=== PATIENT | female | born 1995 | race Caucasian/White ===

== ENCOUNTER 2020-03-30 22:35 | Inpatient (IN) | payer OTHER ==
[2020-03-31] MEDS ORDERED: AMPICILLIN - 2 GM in SODIUM CHLORIDE 100 ML IVPB ONE (00:30)
[2020-03-31 00:49] LABS: BASO % 1.1 % (0-2.0); EOS % 2.4 % (0-4.5); HEMOGLOBIN 13.4 GM/dL (10.7-15.3); LYMPH % 22.6 % (8-40); MCH 27.1 pg (25.7-33.7); MCHC 32.8 g/dl (32.0-36.0); MEAN CELL VOLUME 82.8 fl (80-96); MEAN PLT VOLUME 9.5 fl (7.5-11.1); NEUT % 65.9 % (42.8-82.8); PLATELET COUNT 236 K/MM3 (134-434); RBC 4.95 M/mm3 (3.60-5.2); RDW 13.9 % (11.6-15.6); WHITE BLOOD COUNT 9.3 K/mm3 (4.0-10.0)
[2020-03-31] MEDS ORDERED: AMPICILLIN SODIUM 2 GM VIAL ONE (00:51)
[2020-03-31 01:02] LABS: INR 0.93 (0.83-1.09)
[2020-03-31 01:05] LABS: ACTIVATED PTT 29.4 SECONDS (25.2-36.5)
[2020-03-31] MEDS ORDERED: OXYTOCIN 20 UNITS in 0.9% NS 20 UNIT/1,000 ML INFUS.BAG IV ONE ×2 (01:12→03:33)
[2020-03-31 01:14] LABS: BLOOD UREA NITROGEN 10.7 mg/dL (7-18); CALCIUM 8.8 mg/dL (8.5-10.1); CREATININE 0.6 mg/dL (0.55-1.3); POTASSIUM 3.9 mmol/L (3.5-5.1)
--- NOTE | 2020-03-31 01:41 | HP ---
Past Medical History - Primary Care Physician PCP:: Elsy Vargas - Admission History Source: Patient Limitations to Obtaining History: No Limitations - Past Medical History ...: 2 ...Para: 1 - Past Surgical History Past Surgical History: Yes: None Hx Myomectomy: No Hx Transabdominal Cerclage: No - Smoking History Have you smoked in the past 12 months: No Home Medications - Allergies Allergies/Adverse Reactions: Allergies Allergy/AdvReac Type Severity Reaction Status Date / Time No Known Allergies Allergy Verified 03/31/20 01:01 - Home Medications Home Medications: Ambulatory Orders Pnv 29-1 Tablet 1 tab PO DAILY 03/31/20 Vitamin C 1 tab PO DAILY 03/31/20 Physical Exam - Maternity Constitutional: Yes: Well Nourished, No Distress Lungs: Clear to auscultation Breast(s): Yes: WNL - Abdominal Exam/OB Fundal Height: 1 Number of Fetuses: Single Presentation: Vertex Contractions: Yes Regularity: Regular Intensity: Unaware Category: I Accelerations: None Decelerations: None - Vaginal Exam/OB Presentation: Vertex/Position - Physical Exam Musculoskeletal: Yes: WNL Extremities: Yes: WNL - Labs Lab Results: CBC, BMP 03/31/20 00:15 03/31/20 00:15 Hemorrhage Risk Assessment - Risk Factors Risk Score: 0 Risk Level: Low Risk Problem List - Problems (1) Labor established Code(s): UPF7775 - (2) 39 weeks gestation of Code(s): Z3A.39 - 39 WEEKS GESTATION OF Assessment/Plan IUP at 39 week labor Plan anticipate vagina admit
[2020-03-31] MEDS ORDERED: BENZOCAINE 28 GM HEMORRHOIDAL OINTMENT PR PRN (01:42)
[2020-03-31] MEDS ORDERED: WITCH HAZEL 50% (TUCKS) 40 PAD/JAR PAD TP PRN (01:42)
[2020-03-31] MEDS ORDERED: BENZOCAINE 20% 57 GM BOTTLE TP PRN (01:42)
[2020-03-31] MEDS ORDERED: BISACODYL 10 MG SUPP.RECT PR PRN (01:42)
[2020-03-31] MEDS ORDERED: METHYLERGONOVINE MALEATE 0.2 MG/1 ML AMP IM PRN (01:42)
[2020-03-31] MEDS ORDERED: OXYTOCIN 20 UNITS in 0.9% NS 20 UNIT/1,000 ML INFUS.BAG IV SCH (01:45)
[2020-03-31] MEDS ORDERED: ELECTROLYTE-148 SOLN 1,000 ML IV SCH (01:45)
--- NOTE | 2020-03-31 01:57 | PD.OB.PROG ---
Past Medical History - Primary Care Physician PCP:: Elsy Vargas Documenting Provider Type: Laborist - Admission Chief Complaint: in labor History of Present Illness: second baby, at term History Source: Medical Record Limitations to Obtaining History: Language Barrier - Nursing Documentation Nursing Documentation Reviewed: Yes - Past Medical History STRING LASTER: Denies/None Cardio/Vascular: Denies/None Pulmonary: Denies/None Gastrointestinal: Denies/None Hepatobiliary: Denies/None Renal/: Denies/None ...: 2 ...Para: 1 ... Weeks Gestation by Dates: 39.2 Heme/Onc: Denies/None Infectious Disease: Denies/None Psych: Denies/None Musculoskeletal: Denies/None Rheumatology: Denies/None ENT: Denies/None Endocrine: Denies/None Dermatology: Denies/None - Past Surgical History Past Surgical History: Yes: None - Smoking History Have you smoked in the past 12 months: No Review of Systems - Review of Systems Constitutional: reports: No Symptoms Eyes: reports: No Symptoms HENT: reports: No Symptoms Neck: reports: No Symptoms Cardiovascular: reports: No Symptoms Respiratory: reports: No Symptoms Gastrointestinal: reports: No Symptoms Genitourinary: reports: No Symptoms Breasts: reports: No Symptoms Reported Musculoskeletal: reports: No Symptoms Integumentary: reports: No Symptoms Neurological: reports: No Symptoms Endocrine: reports: No Symptoms Hematology/Lymphatic: reports: No Symptoms Psychiatric: reports: No Symptoms Physical Exam - Obstetrical Constitutional: Yes: Well Nourished, No Distress, Calm Eyes: Yes: WNL, Conjunctiva Clear, EOM Intact HENT: Yes: WNL, Atraumatic, Normocephalic Neck: Yes: WNL, Supple, Trachea Midline Cardiovascular: Yes: WNL, Regular Rate and Rhythm Lungs: Clear to auscultation Breast(s): Yes: WNL - Abdominal Exam/OB Fundal Height: 38 Number of Fetuses: Single Presentation: Vertex Contractions: Yes Regularity: Regular Intensity: Mod/Strong Monitor Mode: External Heart Rate (range): 140 Heart Rate Location: [facility] Category: I Accelerations: Uniform Decelerations: None - Vaginal Exam/OB Vaginal Exam Deferred: No Dilatation (cm): 10 Presentation: Vertex/Position Station: +1 - Physical Exam Musculoskeletal: Yes: WNL Extremities: Yes: WNL Integumentary: Yes: WNL ...Motor Strength: WNL Psychiatric: Yes: WNL - Labs Lab Results: CBC, BMP 03/31/20 00:15 03/31/20 00:15 Problem List - Problems (1) 39 weeks gestation of Code(s): Z3A.39 - 39 WEEKS GESTATION OF (2) Labor established Code(s): [id number] - Assessment/Plan Urge to push. Will bear down. NVD expected.
--- NOTE | 2020-03-31 02:01 | PN ---
Delivery - Delivery Vaginal Delivery: No Problems Type of Anesthesia: Local Episiotomy/Laceration: Midline (small epis.) EBL (cc): 200 Delivery, Single - Stages of Labor Date of Delivery: 03/31/20 Time of Delivery: 01:26 Time Placenta Delivered: :36 Placenta: Yes: Spontaneous, Normal Configuration - Condition of Infant Teenage Babysitter/Rpg Programmer Present: No Infant Gender: Female Position: Left, OA - 1 Minute Total Score: 9 5 Minutes Total Score: 9 - [place] Feeding Plan Initial Plan: Exclusive throughout hospitalization Benefits of Exclusively reinforced: Yes Remarks - Remarks Remarks: NVD, no complications. Small epis., repaired. Delayed cord clamping; divided by FOB.
[2020-03-31 02:53] VITALS: BMI 37.0
[2020-03-31] MEDS ORDERED: IBUPROFEN 600 MG TABLET (FP) PO ONE (03:36)
[2020-03-31] MEDS ORDERED: ACETAMINOPHEN 325 MG TABLET (FP) ONE (03:37)
[2020-03-31] MEDS: ACETAMINOPHEN 325 MG TABLET (FP) PO PRN (03:40)
[2020-03-31] MEDS: IBUPROFEN 600 MG TABLET (FP) PO PRN (03:40)
[2020-03-31] MEDS ORDERED: AMPICILLIN - 1 GM in SODIUM CHLORIDE 100 ML IVPB SCH (04:30)
[2020-03-31 10:01] LABS: POC NITRAZINE NEG
[2020-04-01] MEDS: IBUPROFEN 600 MG TABLET (FP) PO PRN ×2 (01:17→23:11)
[2020-04-01] MEDS: ACETAMINOPHEN 325 MG TABLET (FP) PO PRN ×2 (01:18→23:11)
--- NOTE | 2020-04-01 07:58 | PN ---
Post Note - Post Date of Delivery: 03/31/20 Post Day: 1 Vital Signs: Vital Signs - 24 hr 03/31/20 03/31/20 03/31/20 09:00 14:00 18:00 Temperature 97.8 F 97.8 F 98.2 F Pulse Rate 89 99 H 96 H Respiratory 20 20 20 Rate Blood Pressure 114/71 94/55 L 120/70 O2 Sat by Pulse 99 Oximetry (%) 03/31/20 04/01/20 04/01/20 22:00 02:00 05:56 Temperature 97.5 F L 98.6 F 98.7 F Pulse Rate 99 H 90 88 Respiratory 20 18 18 Rate Blood Pressure 115/67 132/76 120/70 O2 Sat by Pulse Oximetry (%) Labs: Laboratory Results - last 24 hr 03/30/20 03/31/20 22:50 00:30 POC Vag Fld Nitrazine Neg COVID-19 (LAURA) Not detected - Subjective Subjective: No Complaints - Objective Afebrile: Yes Breast: Not engorged Abdomen: Soft, Non-tender Uterus: Fundus firm Vagina: Scant lochia Extremities: Non-tender - Assessment/Plan (1) Labor established Assessment: S/P Normal Plan: Routine Care
[2020-04-01 08:10] LABS: BASO % 0.7 % (0-2.0); EOS % 5.1 % (0-4.5); HEMATOCRIT 35.1 % (32.4-45.2); HEMOGLOBIN 11.3 GM/dL (10.7-15.3); LYMPH % 35.1 % (8-40); MCH 26.7 pg (25.7-33.7); MCHC 32.2 g/dl (32.0-36.0); MEAN PLT VOLUME 9.3 fl (7.5-11.1); MONO % 7.3 % (3.8-10.2); NEUT % 51.8 % (42.8-82.8); PLATELET COUNT 217 K/MM3 (134-434); RBC 4.24 M/mm3 (3.60-5.2); RDW 13.7 % (11.6-15.6); WHITE BLOOD COUNT 9.6 K/mm3 (4.0-10.0)
[2020-04-01 23:43] VITALS: PULSE 87
[2020-04-02 12:36] VITALS: BP 122/73; TEMP 97.6
--- NOTE | 2020-04-24 20:02 | DS ---
Physical Exam-COOKIE MIXER HELPER Vital Signs: Vital Signs Temperature 97.6 F 04/02/20 10:00 Pulse Rate 87 04/02/20 10:00 Respiratory Rate 20 04/02/20 10:00 Blood Pressure 122/73 04/02/20 10:00 O2 Sat by Pulse Oximetry (%) 98 04/01/20 23:42 Constitutional: Yes: Well Nourished, No Distress Gastrointestinal: Yes: WNL, Soft ....Post : Yes: Uterus firm, Uterus non-tender Breast(s): Yes: WNL Extremities: Yes: WNL Labs: CBC, BMP 04/01/20 07:08 03/31/20 00:15 Delivery - Delivery Vaginal Delivery: No Problems Type of Anesthesia: Local Episiotomy/Laceration: Midline (small epis.) EBL (cc): 200 Delivery, Single - Stages of Labor Date 1st Stage Initiatied: 03/30/20 Time 1st Stage Initiated: 22:00 Date 2nd Stage Initiated: 03/31/20 Time 2nd Stage Initiated: 01:00 Date of Delivery: 03/31/20 Time of Delivery: 01:26 Time Placenta Delivered: 01:36 Placenta: Yes: Spontaneous, Normal Configuration - Condition of Concrete Boom Pump Operator/Wet Room Worker Present: No Infant Gender: Female Weight: 6 lb 7 oz Position: Left, OA Total Hours ROM (Hrs/Mins): 37 MINUTES - 1 Minute Total Score: 9 5 Minutes Total Score: 9 - [place] Feeding Plan Initial Plan: Exclusive throughout hospitalization Benefits of Exclusively reinforced: Yes Discharge Summary Problems reviewed: Yes Reason For Visit: LABOR labor at term Procedures: Principal: normal vaginal delivery Condition: Good - Instructions Diet, Activity, Other Instructions: Physical activity Resume your normal everyday activity as tolerated no heavy lifting or exercise until seen by your surgeon. You may walk unlimited aldo of and climb stairs. You may resume driving the car when you feel safe and comfortable behind the wh eel. No sexual activity as instructed. Wound care If you have a bandage, leave it on, and keep dry for 48-72 hours. After that time discard the outer bandage. If they are tapes on the skin under the out of bandage leave them in place. They will peel off in the next 7 to 10 days. Do Not Peel them off. You may shower the day after surgery. If there are tapes present on the skin, you may shower over them. Diet There are no dietary restrictions. Eat healthy, high-fiber foods. Drink 6 to 8 glasses of liquid each day. This will assist in keeping your bowels are regular. Pain management You may take Tylenol or acetaminophen or Ibuprofen (for example, Motrin, Advil etc.) from my pain prescription medication is ordered should be taken as prescribed for moderate to severe pain. Call MD for any of the following: Severe pain not relieved by medication Fever of 101 or higher Excessive bleeding or drainage on dressing Inability to urinate Referrals: Elsy Vargas MD [Staff Physician] - Disposition: HOME - Home Medications Comprehensive Discharge Medication List: Ambulatory Orders Pnv 29-1 Tablet 1 tab PO DAILY 03/31/20 Vitamin C 1 tab PO DAILY 03/31/20 Ibuprofen [Motrin -] 600 mg PO QID #28 tablet 04/01/20
== END 2020-04-02 14:50 | disposition home or self-care (01) | DRG 560 ==
LOC: JDEL 22:35 → JLDR 23:35 → J3W 03-31 06:18
PROVIDERS: ADMIT Obstetrics & Gynecology; ATTEND Obstetrics & Gynecology
PROC: 10E0XZZ Delivery of Products of Conception, External Approach (ICD-10-PCS; principal; 2020-03-31)
PROC: 0W8NXZZ Division of Female Perineum, External Approach (ICD-10-PCS; 2020-03-31)
DX: O80 Encounter for full-term uncomplicated delivery (principal); Z3A.39 39 weeks gestation of pregnancy; Z37.0 Single live birth
CPT/HCPCS: 36415; 59409; 80048; 83986-QW; 85025; 85610; 85730; 86780; 86850; 86900; 86901; 87389; U0003